=== PATIENT | female | born 1955 | race Caucasian/White ===

== ENCOUNTER 2017-09-28 08:30 | Emergency (ER) | payer OTHER ==
[2017-09-28] MEDS: predniSONE 20 MG TAB PO (09:56)
[2017-09-28] MEDS: ALBUTEROL 0.083% (NEB) 2.5 MG/3 ML AMP HHN (10:03)
[2017-09-28] MEDS: IPRATROPIUM (NEB) 0.5 MG/2.5 ML AMP HHN (10:04)
== END 2017-09-28 11:26 | disposition home or self-care (01) ==
LOC: FTE 08:30
DX: J18.1 Lobar pneumonia, unspecified organism (principal); J06.9 Acute upper respiratory infection, unspecified
CPT/HCPCS: 71045; 94664; 99284-25

== ENCOUNTER 2018-12-11 08:25 | Emergency (ER) | payer OTHER ==
[2018-12-11] MEDS: IBUPROFEN 600 MG TAB PO (09:02)
== END 2018-12-11 10:28 | disposition home or self-care (01) ==
LOC: FTE 08:25
DX: M79.672 Pain in left foot (principal)
CPT/HCPCS: 73630; 73630-LT; 99283-25